=== PATIENT | female | born 1935 | race American Indian/Alaskan Native ===

== ENCOUNTER 2021-04-21 21:38 | Observation (INO) | payer MEDICARE, OTHER ==
[2021-04-21 21:53] VITALS: BMI 21.1
[2021-04-21] MEDS ORDERED: ALPRAZolam 1 MG TABLET PO PRN (23:09)
[2021-04-21] MEDS ORDERED: ALPRAZolam 1 MG TABLET PO ONE (23:25)
[2021-04-21] MEDS ORDERED: ALPRAZolam 1 MG TABLET ONE (23:30)
[2021-04-22 00:42] LABS: BASO % 1.2 % (0-2.0); EOS % 3.8 % (0-4.5); HEMATOCRIT 35.2 % (32.4-45.2); HEMOGLOBIN 12.1 GM/dL (10.7-15.3); LYMPH % 16.5 % (8-40); MCH 29.9 pg (25.7-33.7); MCHC 34.4 g/dl (32.0-36.0); MEAN CELL VOLUME 86.9 fl (80-96); MEAN PLT VOLUME 8.3 fl (7.5-11.1); MONO % 9.4 % (3.8-10.2); NEUT % 69.1 % (42.8-82.8); PLATELET COUNT 272 10^3/uL (134-434); RBC 4.05 M/mm3 (3.60-5.2); RDW 13.2 % (11.6-15.6); WHITE BLOOD COUNT 9.8 K/mm3 (4.0-10.0)
[2021-04-22 00:54] LABS: CHLORIDE 103 mmol/L (98-107); SODIUM 136 mmol/L (136-145)
[2021-04-22 00:56] LABS: CALCIUM 9.7 mg/dL (8.5-10.1)
[2021-04-22 00:57] LABS: ANION GAP 10 MMOL/L (8-16); BLOOD UREA NITROGEN 24.9 mg/dL (7-18); CO2 24 mmol/L (21-32); GLUCOSE,RANDOM 126 mg/dL (74-106); MAGNESIUM 2.3 mg/dL (1.8-2.4)
[2021-04-22 01:00] LABS: CREATININE 1.1 mg/dL (0.55-1.3); SGOT/AST 20 U/L (15-37); SGPT/ALT 26 U/L (13-61)
[2021-04-22 01:01] LABS: BILIRUBIN,TOTAL 0.5 mg/dL (0.2-1)
[2021-04-22 01:02] LABS: TOT PROT 7.4 g/dl (6.4-8.2)
[2021-04-22 01:03] LABS: ALK PHOS 73 U/L (45-117)
[2021-04-22] MEDS ORDERED: ACETAMINOPHEN 325 MG TABLET (FP) PO PRN (02:44)
[2021-04-22] MEDS ORDERED: POLYETHYLENE GLYCOL (HEALTHYLAX) 3350 17 GM PACKET PO PRN (02:44)
[2021-04-22] MEDS ORDERED: ALPRAZolam 0.25 MG TABLET PO PRN (04:26)
[2021-04-22] MEDS ORDERED: ALBUTEROL SO4 HFA INHALER IH PRN (04:26)
[2021-04-22] MEDS ORDERED: FAMOTIDINE 10 MG TABLET PO ONE (05:16)
[2021-04-22] MEDS ORDERED: FAMOTIDINE 10 MG TABLET ONE (05:27)
[2021-04-22] MEDS ORDERED: LEVOTHYROXINE NA 25 MCG TABLET (FP) ONE (05:55)
[2021-04-22] MEDS ORDERED: LEVOTHYROXINE NA 50 MCG TABLET (FP) PO SCH (07:00)
[2021-04-22 07:23] LABS: CHLORIDE 104 mmol/L (98-107); SODIUM 136 mmol/L (136-145)
[2021-04-22 07:33] LABS: CALCIUM 9.3 mg/dL (8.5-10.1)
[2021-04-22 07:34] LABS: ANION GAP 6 MMOL/L (8-16); BLOOD UREA NITROGEN 27.3 mg/dL (7-18); CO2 26 mmol/L (21-32); GLUCOSE,RANDOM 162 mg/dL (74-106)
[2021-04-22 07:37] LABS: CREATININE 1.4 mg/dL (0.55-1.3)
[2021-04-22 09:00] LABS: EOS % 6.2 % (0-4.5); HEMATOCRIT 35.3 % (32.4-45.2); HEMOGLOBIN 11.8 GM/dL (10.7-15.3); LYMPH % 26.8 % (8-40); MCH 29.4 pg (25.7-33.7); MCHC 33.3 g/dl (32.0-36.0); MEAN CELL VOLUME 88.2 fl (80-96); MEAN PLT VOLUME 8.7 fl (7.5-11.1); MONO % 12.8 % (3.8-10.2); NEUT % 53.2 % (42.8-82.8); PLATELET COUNT 286 10^3/uL (134-434); RDW 13.4 % (11.6-15.6); WHITE BLOOD COUNT 9.9 K/mm3 (4.0-10.0)
[2021-04-22] MEDS ORDERED: amLODIPine BESYLATE 5 MG TABLET (FP) ONE (09:30)
[2021-04-22] MEDS ORDERED: ALPRAZolam 0.25 MG TABLET ONE (09:31)
[2021-04-22] MEDS ORDERED: LOSARTAN POTASSIUM 50 MG TABLET ONE (09:31)
[2021-04-22] MEDS ORDERED: METOPROLOL TARTRATE 50 MG TABLET (FP) ONE (09:31)
[2021-04-22 09:58] VITALS: TEMP 98.1
[2021-04-22] MEDS ORDERED: LOSARTAN POTASSIUM 50 MG TABLET PO SCH ×2 (10:00)
[2021-04-22] MEDS ORDERED: BUDESONIDE/FORMETEROL FUMARATE 160/4.5 mcg INHALER IH SCH (10:00)
[2021-04-22] MEDS ORDERED: METOPROLOL TARTRATE 50 MG TABLET (FP) PO SCH (10:00)
[2021-04-22] MEDS ORDERED: amLODIPine BESYLATE 5 MG TABLET (FP) PO SCH (10:00)
[2021-04-22 13:19] VITALS: BP 120/68; PULSE 63
[2021-04-22] MEDS ORDERED: LACTATED RINGERS SOLUTION 1,000 ML/1,000 ML INFUS.BAG IV SCH (14:00)
== END 2021-04-22 15:31 | disposition home or self-care (01) ==
LOC: JER 21:38 → JERFT 21:38 → JERBED 23:10
PROVIDERS: ADMIT Hospitalist
PROC: 3E0F7SF Introduction of Other Gas into Respiratory Tract, Via Natural or Artificial Opening (ICD-10-PCS; principal; 2021-04-21)
DX: R07.89 Other chest pain (principal); F41.9 Anxiety disorder, unspecified; I10 Essential (primary) hypertension; E03.9 Hypothyroidism, unspecified; J44.9 Chronic obstructive pulmonary disease, unspecified; K21.9 Gastro-esophageal reflux disease without esophagitis; Z91.011 Allergy to milk products; Z91.018 Allergy to other foods
CPT/HCPCS: 36415; 71045-TC-FY; 80048; 80053; 82550; 83735; 84443; 84484; 85025; 93005; 93010; 94640; 99285-25; C9803; G0378; U0003; U0005

== ENCOUNTER 2022-10-30 18:49 | Emergency (ER) | payer OTHER ==
[2022-10-30 18:57] VITALS: TEMP 97.5; BMI 21.1
[2022-10-30] MEDS ORDERED: CEPHALEXIN MONOHYDRATE 500 MG CAPSULE (UD) PO ONE (21:20)
[2022-10-30] MEDS ORDERED: CEPHALEXIN MONOHYDRATE 500 MG CAPSULE (UD) ONE (21:29)
[2022-10-30 21:30] LABS: BASO % 0.7 % (0-2.0); EOS % 4.3 % (0-4.5); HEMATOCRIT 38.6 % (32.4-45.2); HEMOGLOBIN 12.9 GM/dL (10.7-15.3); LYMPH % 18.4 % (8-40); MCH 29.4 pg (25.7-33.7); MCHC 33.4 g/dl (32.0-36.0); MEAN CELL VOLUME 87.8 fl (80-96); MEAN PLT VOLUME 7.6 fl (7.5-11.1); NEUT % 64.6 % (42.8-82.8); PLATELET COUNT 227 10^3/uL (134-434); RDW 13.5 % (11.6-15.6); WHITE BLOOD COUNT 9.2 K/mm3 (4.0-10.0)
[2022-10-30 21:38] LABS: INR 0.96 (0.83-1.09); PROTHROMBIN TIME (PATIENT) 11.1 SEC (9.7-13.0)
[2022-10-30 22:00] LABS: ALBUMIN 3.8 g/dl (3.4-5.0); CALCIUM 9.4 mg/dL (8.5-10.1)
[2022-10-30 22:01] LABS: BLOOD UREA NITROGEN 22.6 mg/dL (7-18)
[2022-10-30 22:03] LABS: CREATININE 1.2 mg/dL (0.55-1.3)
[2022-10-30 22:05] LABS: BILIRUBIN,TOTAL 0.7 mg/dL (0.2-1); TOT PROT 7.2 g/dl (6.4-8.2)
[2022-10-30] MEDS ORDERED: SODIUM POLYSTYRENE SULFONATE 15 GM/60 ML BOTTLE PO ONE (22:30)
[2022-10-30] MEDS ORDERED: SODIUM POLYSTYRENE SULFONATE 15 GM/60 ML BOTTLE ONE (22:43)
[2022-10-30 22:49] VITALS: BP 150/75; PULSE 75; RESP 20
== END 2022-10-30 22:49 | disposition home or self-care (01) ==
LOC: JER 18:49
DX: N39.0 Urinary tract infection, site not specified (principal); R07.89 Other chest pain; R30.9 Painful micturition, unspecified; W10.8XXA Fall (on) (from) other stairs and steps, initial encounter; Y93.01 Activity, walking, marching and hiking; Y92.019 Unspecified place in single-family (private) house as the place of occurrence of the external cause
CPT/HCPCS: 36415; 70450-TC; 71046-TC-FY; 71101-TC-LT-FY; 72125-TC; 80053; 84439; 84443; 84484; 85025; 85610; 85730; 86850; 86900; 86901; 93005; 93010; 99285-25

== ENCOUNTER 2022-11-01 22:03 | Inpatient (IN) | payer OTHER ==
[2022-11-01] MEDS ORDERED: ACETAMINOPHEN 1000 MG/100 ML BAG IVPB ONE (22:25)
[2022-11-01] MEDS ORDERED: FAMOTIDINE 20 MG/50 ML IVPB 20 MG/50 ML MG IVPB ONE ×2 (22:35→23:08)
[2022-11-01] MEDS ORDERED: ONDANSETRON 4 MG/2 ML VIAL IVPUSH ONE (22:35)
[2022-11-01] MEDS ORDERED: ACETAMINOPHEN INJECTION 100 ML IVPB ONE (23:08)
[2022-11-01] MEDS ORDERED: ONDANSETRON 4 MG/2 ML VIAL ONE (23:08)
[2022-11-01 23:24] LABS: BASO % 0.6 % (0-2.0); EOS % 0.3 % (0-4.5); HEMATOCRIT 37.2 % (32.4-45.2); HEMOGLOBIN 12.4 GM/dL (10.7-15.3); LYMPH % 5.4 % (8-40); MCH 29.1 pg (25.7-33.7); MCHC 33.3 g/dl (32.0-36.0); MEAN CELL VOLUME 87.2 fl (80-96); MEAN PLT VOLUME 7.6 fl (7.5-11.1); MONO % 7.1 % (3.8-10.2); NEUT % 86.6 % (42.8-82.8); PLATELET COUNT 227 10^3/uL (134-434); RBC 4.26 M/mm3 (3.60-5.2); RDW 13.1 % (11.6-15.6); WHITE BLOOD COUNT 12.6 K/mm3 (4.0-10.0)
[2022-11-01 23:38] LABS: POTASSIUM 4.2 mmol/L (3.5-5.1)
[2022-11-01 23:43] LABS: CREATININE 0.8 mg/dL (0.55-1.3)
[2022-11-01] MEDS ORDERED: SODIUM CHLORIDE 0.9% 500 ML INFUS.BAG IV ONE (23:44)
[2022-11-02 00:09] LABS: CALCIUM 8.9 mg/dL (8.5-10.1)
[2022-11-02] MEDS ORDERED: ASPIRIN 81 MG CHEWABLE TABLETS PO ONE (00:13)
[2022-11-02] MEDS ORDERED: ASPIRIN 81 MG CHEWABLE TABLETS ONE (00:22)
[2022-11-02] MEDS ORDERED: ATORVASTATIN CA 80 MG TABLET (FP) PO ONE (00:59)
[2022-11-02] MEDS ORDERED: ALPRAZolam 0.25 MG TABLET ONE (01:24)
[2022-11-02] MEDS ORDERED: PATIENT'S OWN MEDICATION (NON-FORMULARY) (Alprazolam [Alprazolam Xr] 0.5 MG Tab.Er.24h) PO PRN (01:24)
[2022-11-02] MEDS ORDERED: ALPRAZolam 1 MG TABLET PO PRN (01:24)
[2022-11-02] MEDS ORDERED: ATORVASTATIN CA 80 MG TABLET (FP) ONE (01:25)
[2022-11-02] MEDS ORDERED: CEFTRIAXONE 1 GM in DEXTROSE 5%-WATER - 50 ML IVPB ONE (02:45)
[2022-11-02] MEDS ORDERED: SODIUM CHLORIDE 1,000 ML IV SCH (03:00)
[2022-11-02 03:08] VITALS: BMI 21.1
[2022-11-02] MEDS ORDERED: ONDANSETRON 4 MG/2 ML VIAL IVPUSH ONE (03:22)
[2022-11-02] MEDS: ALPRAZolam 0.25 MG TABLET PO PRN ×3 (03:57→20:31)
[2022-11-02] MEDS ORDERED: ALBUTEROL SO4 HFA INHALER IH PRN (06:05)
[2022-11-02] MEDS: LEVOTHYROXINE NA 25 MCG TABLET (FP) PO SCH (06:11)
[2022-11-02 07:44] LABS: BASO % 0.4 % (0-2.0); EOS % 1.9 % (0-4.5); HEMATOCRIT 31.1 % (32.4-45.2); HEMOGLOBIN 10.4 GM/dL (10.7-15.3); LYMPH % 19.3 % (8-40); MCH 29.4 pg (25.7-33.7); MCHC 33.4 g/dl (32.0-36.0); MEAN CELL VOLUME 87.9 fl (80-96); MEAN PLT VOLUME 8.7 fl (7.5-11.1); MONO % 9.2 % (3.8-10.2); NEUT % 69.2 % (42.8-82.8); PLATELET COUNT 186 10^3/uL (134-434); RBC 3.54 M/mm3 (3.60-5.2); RDW 12.9 % (11.6-15.6); WHITE BLOOD COUNT 10.7 K/mm3 (4.0-10.0)
[2022-11-02 08:03] LABS: POTASSIUM 3.7 mmol/L (3.5-5.1)
[2022-11-02 08:07] LABS: CALCIUM 8.4 mg/dL (8.5-10.1)
[2022-11-02 08:08] LABS: BLOOD UREA NITROGEN 14.5 mg/dL (7-18); MAGNESIUM 1.8 mg/dL (1.8-2.4)
[2022-11-02 08:10] LABS: CREATININE 0.6 mg/dL (0.55-1.3); PHOSPHOROUS 3.1 mg/dL (2.5-4.9)
[2022-11-02 08:12] LABS: BILIRUBIN,TOTAL 0.6 mg/dL (0.2-1); TOT PROT 5.5 g/dl (6.4-8.2)
[2022-11-02 08:59] LABS: EPI CELLS 13 /uL (0-25.1); HYALINE CASTS 0 /uL (0-3.1); PH,URINE 6.5 (5.0-8.0); URINE APPEARANCE CLEAR; URINE BACTERIA 57 /uL (0-1359); URINE BILIRUBIN NEGATIVE (NEGATIVE); URINE COLOR YELLOW; URINE GLUCOSE (UA) NEGATIVE (NEGATIVE); URINE KETONE NEGATIVE (NEGATIVE); URINE LEUK ESTERASE 1+ (NEGATIVE); URINE NITRITE NEGATIVE (NEGATIVE); URINE PROTEIN NEGATIVE (NEGATIVE); URINE RBC 23 /uL (0-23.9); URINE UROBILINOGEN 0.2 mg/dL (0.2-1.0); URINE WBC 20 /uL (0-25.8)
[2022-11-02] MEDS ORDERED: ENOXAPARIN NA (PORCINE) 40 MG/0.4 ML DISP.SYRIN SQ SCH (10:00)
[2022-11-02] MEDS: ENOXAPARIN NA (PORCINE) 60 MG/0.6 ML DISP.SYRIN SQ SCH ×2 (10:18→21:23)
[2022-11-02] MEDS: ASPIRIN 81 MG CHEWABLE TABLETS PO SCH (10:19)
[2022-11-02] MEDS: LOSARTAN POTASSIUM 50 MG TABLET PO SCH (10:19)
[2022-11-02] MEDS: amLODIPine BESYLATE 10 MG TABLET (FP) PO SCH (10:19)
[2022-11-02] MEDS: BUDESONIDE/FORMETEROL FUMARATE 160/4.5 mcg INHALER IH SCH ×2 (10:21→21:24)
[2022-11-02] MEDS ORDERED: PANTOPRAZOLE 20 MG TABLET PO ONE (20:42)
[2022-11-02] MEDS ORDERED: ATORVASTATIN CA 10 MG TABLET (FP) PO SCH (22:00)
[2022-11-03] MEDS: LEVOTHYROXINE NA 25 MCG TABLET (FP) PO SCH (06:28)
[2022-11-03 07:33] LABS: CHOLESTEROL 144 mg/dL (50-200)
[2022-11-03 07:34] LABS: LDL CHOLESTEROL (ONLY SJRH) 70 mg/dL (5-100)
[2022-11-03 07:37] LABS: HDL CHOLESTEROL 62 mg/dL (40-60)
[2022-11-03] MEDS: ENOXAPARIN NA (PORCINE) 60 MG/0.6 ML DISP.SYRIN SQ SCH (10:25)
[2022-11-03] MEDS: LOSARTAN POTASSIUM 50 MG TABLET PO SCH (10:25)
[2022-11-03] MEDS: amLODIPine BESYLATE 10 MG TABLET (FP) PO SCH (10:25)
[2022-11-03] MEDS: ASPIRIN 81 MG CHEWABLE TABLETS PO SCH (10:25)
[2022-11-03] MEDS: ALPRAZolam 0.25 MG TABLET PO PRN ×2 (10:29→18:06)
[2022-11-03] MEDS: BUDESONIDE/FORMETEROL FUMARATE 160/4.5 mcg INHALER IH SCH ×2 (10:30→21:23)
[2022-11-03] MEDS ORDERED: ATORVASTATIN CA 20 MG TABLET (FP) PO SCH (11:02)
[2022-11-03] MEDS ORDERED: POLYETHYLENE GLYCOL (HEALTHYLAX) 3350 17 GM PACKET PO SCH (11:15)
[2022-11-03] MEDS ORDERED: CEFTRIAXONE 1 GM in DEXTROSE 5%-WATER - 50 ML IVPB SCH (11:45)
[2022-11-03] MEDS: GLYCERIN 1 RECTAL SUPPOSITORY, ADULT RC ONE ×2 (15:22→15:34)
[2022-11-03] MEDS ORDERED: SODIUM CHLORIDE 1 GM TABLET PO ONE (20:09)
[2022-11-03] MEDS ORDERED: ALPRAZolam 0.25 MG TABLET PO ONE (22:37)
[2022-11-04] MEDS: LEVOTHYROXINE NA 25 MCG TABLET (FP) PO SCH (06:14)
[2022-11-04 08:03] LABS: BASO % 0.7 % (0-2.0); EOS % 6.1 % (0-4.5); HEMATOCRIT 33.8 % (32.4-45.2); HEMOGLOBIN 11.1 GM/dL (10.7-15.3); LYMPH % 24.9 % (8-40); MCH 29.4 pg (25.7-33.7); MCHC 32.8 g/dl (32.0-36.0); MEAN CELL VOLUME 89.8 fl (80-96); MEAN PLT VOLUME 8.2 fl (7.5-11.1); MONO % 15.6 % (3.8-10.2); NEUT % 52.7 % (42.8-82.8); PLATELET COUNT 207 10^3/uL (134-434); RBC 3.77 M/mm3 (3.60-5.2); RDW 13.1 % (11.6-15.6); WHITE BLOOD COUNT 6.8 K/mm3 (4.0-10.0)
[2022-11-04 08:18] LABS: POTASSIUM 4.5 mmol/L (3.5-5.1)
[2022-11-04 08:20] LABS: BLOOD UREA NITROGEN 16.5 mg/dL (7-18); CALCIUM 9.1 mg/dL (8.5-10.1)
[2022-11-04 08:21] LABS: ALBUMIN 3.1 g/dl (3.4-5.0); MAGNESIUM 2.1 mg/dL (1.8-2.4)
[2022-11-04 08:23] LABS: CREATININE 0.8 mg/dL (0.55-1.3); PHOSPHOROUS 3.5 mg/dL (2.5-4.9)
[2022-11-04 08:25] LABS: BILIRUBIN,TOTAL 0.3 mg/dL (0.2-1)
[2022-11-04] MEDS: LOSARTAN POTASSIUM 50 MG TABLET PO SCH (09:07)
[2022-11-04] MEDS: amLODIPine BESYLATE 10 MG TABLET (FP) PO SCH (09:07)
[2022-11-04] MEDS: BUDESONIDE/FORMETEROL FUMARATE 160/4.5 mcg INHALER IH SCH (09:08)
[2022-11-04] MEDS: CEFTRIAXONE 1 GM in DEXTROSE 5%-WATER - 50 ML IVPB ONE ×3 (09:08→09:33)
[2022-11-04] MEDS: ENOXAPARIN NA (PORCINE) 40 MG/0.4 ML DISP.SYRIN SQ SCH ×2 (09:09→09:19)
[2022-11-04] MEDS: ALPRAZolam 0.25 MG TABLET PO PRN (09:11)
[2022-11-04 09:45] VITALS: BP 134/58; PULSE 97; RESP 20; TEMP 98.6
[2022-11-04] MEDS ORDERED: ASPIRIN COATED 81 MG TABLET.EC PO SCH (10:00)
== END 2022-11-04 13:15 | disposition home or self-care (01) | DRG 281 ==
LOC: JER 22:03 → JERBED 11-02 00:17 → J4S 11-02 02:40
PROVIDERS: ADMIT Internal Medicine; ATTEND Internal Medicine
DX: I21.4 Non-ST elevation (NSTEMI) myocardial infarction (principal); E87.1 Hypo-osmolality and hyponatremia; N39.0 Urinary tract infection, site not specified; I10 Essential (primary) hypertension; E03.9 Hypothyroidism, unspecified; J44.9 Chronic obstructive pulmonary disease, unspecified; K21.9 Gastro-esophageal reflux disease without esophagitis; I44.0 Atrioventricular block, first degree; F41.9 Anxiety disorder, unspecified
CPT/HCPCS: 36415; 80048; 80053; 80061; 81003; 82570; 83690; 83735; 83935; 84100; 84300; 84443; 84484; 85025; 87086; 93005; 93010; 93306-TC; 94761; 97116-GP; 97161-GP; 99285-25

== ENCOUNTER 2023-08-26 17:09 | Emergency (ER) | payer OTHER ==
[2023-08-26 17:20] VITALS: RESP 17; TEMP 98.2; BMI 19.0
[2023-08-26 18:39] LABS: BASO % 0.9 % (0-2.0); EOS % 2.8 % (0-4.5); HEMATOCRIT 34.7 % (32.4-45.2); HEMOGLOBIN 11.7 GM/dL (10.7-15.3); LYMPH % 13.2 % (8-40); MCH 30.1 pg (25.7-33.7); MCHC 33.7 g/dl (32.0-36.0); MEAN CELL VOLUME 89.3 fl (80-96); MEAN PLT VOLUME 7.9 fl (7.5-11.1); MONO % 11.9 % (3.8-10.2); NEUT % 71.2 % (42.8-82.8); PLATELET COUNT 224 10^3/uL (134-434); RBC 3.89 M/mm3 (3.60-5.2); RDW 13.7 % (11.6-15.6); WHITE BLOOD COUNT 7.3 K/mm3 (4.0-10.0)
[2023-08-26 19:13] LABS: POTASSIUM 4.5 mmol/L (3.5-5.1)
[2023-08-26 19:15] LABS: ALBUMIN 3.5 g/dl (3.4-5.0); BLOOD UREA NITROGEN 32.4 mg/dL (7-18)
[2023-08-26 19:16] LABS: MAGNESIUM 2.4 mg/dL (1.8-2.4)
[2023-08-26 19:20] LABS: BILIRUBIN,TOTAL 0.3 mg/dL (0.2-1); TOT PROT 6.6 g/dl (6.4-8.2)
[2023-08-26] MEDS: LOSARTAN POTASSIUM 50 MG TABLET PO ONE (20:29)
[2023-08-26 20:53] VITALS: BP 138/73; PULSE 88
[2023-08-26] MEDS ORDERED: amLODIPine BESYLATE 10 MG TABLET (FP) ONE (20:54)
[2023-08-26] MEDS: amLODIPine BESYLATE 10 MG TABLET (FP) PO ONE (20:59)
== END 2023-08-26 21:23 | disposition home or self-care (01) ==
LOC: JER 17:09
DX: R26.9 Unspecified abnormalities of gait and mobility (principal); Z20.822 Contact with and (suspected) exposure to COVID-19
CPT/HCPCS: 0241U-QW; 36415; 70450-TC; 80053; 83735; 84439; 84443; 84484; 85025; 93005; 93010; 99285-25

== ENCOUNTER 2023-10-27 14:43 | Observation (INO) | payer OTHER ==
[2023-10-27] MEDS ORDERED: FAMOTIDINE 20 MG/50 ML IVPB 20 MG/50 ML MG IVPB ONE (16:32)
[2023-10-27 16:34] LABS: EOS % 2.9 % (0-4.5); HEMATOCRIT 35.7 % (32.4-45.2); HEMOGLOBIN 12.2 GM/dL (10.7-15.3); LYMPH % 16.8 % (8-40); MCH 30.6 pg (25.7-33.7); MCHC 34.2 g/dl (32.0-36.0); MEAN CELL VOLUME 89.6 fl (80-96); MEAN PLT VOLUME 7.5 fl (7.5-11.1); MONO % 10.1 % (3.8-10.2); NEUT % 69.2 % (42.8-82.8); PLATELET COUNT 241 10^3/uL (134-434); RBC 3.98 M/mm3 (3.60-5.2); WHITE BLOOD COUNT 7.4 K/mm3 (4.0-10.0)
[2023-10-27 16:36] LABS: EPI CELLS 5 /uL (0-25.1); HYALINE CASTS 1 /uL (0-3.1); URINE APPEARANCE CLEAR; URINE BACTERIA 7509 /uL (0-1359); URINE BILIRUBIN NEGATIVE (NEGATIVE); URINE COLOR YELLOW; URINE GLUCOSE (UA) NEGATIVE (NEGATIVE); URINE KETONE NEGATIVE (NEGATIVE); URINE LEUK ESTERASE 3+ (NEGATIVE); URINE NITRITE POSITIVE (NEGATIVE); URINE PROTEIN NEGATIVE (NEGATIVE); URINE RBC 6 /uL (0-23.9); URINE UROBILINOGEN 0.2 mg/dL (0.2-1.0); URINE WBC 243 /uL (0-25.8)
[2023-10-27 16:51] LABS: POTASSIUM 4.2 mmol/L (3.5-5.1)
[2023-10-27 16:53] LABS: ALBUMIN 3.7 g/dl (3.4-5.0); BLOOD UREA NITROGEN 22.7 mg/dL (7-18); CALCIUM 9.2 mg/dL (8.5-10.1)
[2023-10-27] MEDS: FAMOTIDINE 20 MG/50 ML IVPB 20 MG/50 ML MG IVPB ONE (16:54)
[2023-10-27] MEDS: LORazepam 2 MG/ML SDV VIAL IM ONE (16:54)
[2023-10-27] MEDS: LORazepam 2 MG/ML SDV VIAL IVPUSH ONE (16:54)
[2023-10-27 16:56] LABS: CREATININE 0.9 mg/dL (0.55-1.3)
[2023-10-27 16:57] LABS: PHOSPHOROUS 2.6 mg/dL (2.5-4.9)
[2023-10-27 16:58] LABS: BILIRUBIN,TOTAL 0.5 mg/dL (0.2-1); TOT PROT 7.3 g/dl (6.4-8.2)
[2023-10-27] MEDS ORDERED: CEFTRIAXONE 1 GM/50 ML BAG ONE (18:28)
[2023-10-27 18:31] LABS: INR 0.94 (0.83-1.09); PROTHROMBIN TIME (PATIENT) 10.8 SEC (9.7-13.0)
[2023-10-27 18:35] LABS: ACTIVATED PTT 28.4 SECONDS (25.2-36.5)
[2023-10-27] MEDS ORDERED: ALBUTEROL SO4 HFA INHALER IH PRN (22:06)
[2023-10-27] MEDS ORDERED: POLYETHYLENE GLYCOL (HEALTHYLAX) 3350 17 GM PACKET ONE (22:16)
[2023-10-27] MEDS: POLYETHYLENE GLYCOL (HEALTHYLAX) 3350 17 GM PACKET PO SCH (22:45)
[2023-10-28] MEDS: LEVOTHYROXINE NA 25 MCG TABLET (FP) PO SCH (06:11)
[2023-10-28 07:59] LABS: HEMATOCRIT 31.9 % (32.4-45.2); MCH 30.8 pg (25.7-33.7); MCHC 34.4 g/dl (32.0-36.0); MEAN CELL VOLUME 89.5 fl (80-96); MEAN PLT VOLUME 7.8 fl (7.5-11.1); PLATELET COUNT 223 10^3/uL (134-434); RBC 3.56 M/mm3 (3.60-5.2); RDW 13.2 % (11.6-15.6); WHITE BLOOD COUNT 8.3 K/mm3 (4.0-10.0)
[2023-10-28 08:13] LABS: POTASSIUM 4.2 mmol/L (3.5-5.1)
[2023-10-28 08:17] LABS: CALCIUM 8.8 mg/dL (8.5-10.1)
[2023-10-28 08:18] LABS: ALBUMIN 3.2 g/dl (3.4-5.0)
[2023-10-28 08:21] LABS: CREATININE 0.9 mg/dL (0.55-1.3)
[2023-10-28 08:23] LABS: BILIRUBIN,TOTAL 0.6 mg/dL (0.2-1); TOT PROT 6.1 g/dl (6.4-8.2)
[2023-10-28] MEDS: amLODIPine BESYLATE 10 MG TABLET (FP) PO SCH (10:17)
[2023-10-28] MEDS: ASPIRIN COATED 81 MG TABLET.EC PO SCH (10:17)
[2023-10-28] MEDS: LOSARTAN POTASSIUM 50 MG TABLET PO SCH (10:18)
[2023-10-28] MEDS: ENOXAPARIN NA (PORCINE) 40 MG/0.4 ML DISP.SYRIN SQ SCH (10:18)
[2023-10-28] MEDS: CEFTRIAXONE 1 GM in DEXTROSE 5%-WATER - 50 ML IVPB SCH (10:18)
[2023-10-28] MEDS: BUDESONIDE/FORMETEROL FUMARATE 160/4.5 mcg INHALER IH SCH (10:19)
[2023-10-28] MEDS ORDERED: PANTOPRAZOLE 40 MG TABLET PO SCH (10:45)
[2023-10-28] MEDS: PANTOPRAZOLE 40 MG TABLET PO SCH (12:20)
[2023-10-28] MEDS: PANTOPRAZOLE 20 MG TABLET PO SCH (15:31)
[2023-10-28] MEDS: ALPRAZolam 0.25 MG TABLET PO SCH (16:08)
[2023-10-28] MEDS: ATORVASTATIN CA 20 MG TABLET (FP) PO SCH (21:35)
[2023-10-29] MEDS: POLYETHYLENE GLYCOL (HEALTHYLAX) 3350 17 GM PACKET PO SCH ×2 (10:15→21:59)
[2023-10-29 13:05] VITALS: BMI 16.6
[2023-10-29] MEDS: LACTULOSE 20 GM/30 ML UDC (FOR ORAL USE ONLY) PO ONE (14:31)
[2023-10-29] MEDS: MULTIVIT-MINERALS ORAL LIQUID PO SCH (14:31)
[2023-10-29 23:37] VITALS: RESP 18
[2023-10-30 06:40] LABS: BASO % 1.3 % (0-2.0); EOS % 9.7 % (0-4.5); HEMATOCRIT 32.4 % (32.4-45.2); HEMOGLOBIN 10.9 GM/dL (10.7-15.3); MCH 30.1 pg (25.7-33.7); MCHC 33.5 g/dl (32.0-36.0); MEAN CELL VOLUME 89.7 fl (80-96); MEAN PLT VOLUME 8.4 fl (7.5-11.1); MONO % 12.7 % (3.8-10.2); NEUT % 45.3 % (42.8-82.8); PLATELET COUNT 220 10^3/uL (134-434); RBC 3.61 M/mm3 (3.60-5.2); RDW 13.1 % (11.6-15.6); WHITE BLOOD COUNT 6.9 K/mm3 (4.0-10.0)
[2023-10-30 06:54] LABS: POTASSIUM 4.5 mmol/L (3.5-5.1)
[2023-10-30 06:58] LABS: BLOOD UREA NITROGEN 31.8 mg/dL (7-18); CALCIUM 8.7 mg/dL (8.5-10.1); MAGNESIUM 2.2 mg/dL (1.8-2.4)
[2023-10-30 07:01] LABS: PHOSPHOROUS 4.3 mg/dL (2.5-4.9)
[2023-10-30 07:02] LABS: CREATININE 0.8 mg/dL (0.55-1.3)
[2023-10-30 07:03] LABS: BILIRUBIN,TOTAL 0.3 mg/dL (0.2-1); TOT PROT 5.8 g/dl (6.4-8.2)
[2023-10-30] MEDS: FLUTICASONE PROP 0.05% 16 GM NASAL SPRAY NS SCH (09:14)
[2023-10-30] MEDS: amLODIPine BESYLATE 5 MG TABLET (FP) PO SCH (09:15)
[2023-10-30] MEDS: ISOSORBIDE MONONITRATE 30 MG TAB.SR.24H (FP) PO SCH (09:17)
[2023-10-30 09:38] VITALS: TEMP 97.6
[2023-10-30] MEDS: LOSARTAN POTASSIUM 50 MG TABLET PO ONE (10:24)
[2023-10-30 11:45] VITALS: BP 106/62; PULSE 86
[2023-10-31] MEDS ORDERED: LOSARTAN POTASSIUM 50 MG TABLET PO SCH (10:00)
== END 2023-10-30 11:49 | disposition home health service (06) ==
LOC: JER 14:43 → JERBED 19:40 → J4S 10-28 00:07
PROVIDERS: ADMIT Internal Medicine; ATTEND Internal Medicine
PROC: 3E03329 Introduction of Other Anti-infective into Peripheral Vein, Percutaneous Approach (ICD-10-PCS; principal; 2023-10-27)
PROC: 3E033GC Introduction of Other Therapeutic Substance into Peripheral Vein, Percutaneous Approach (ICD-10-PCS; 2023-10-27)
DX: N39.0 Urinary tract infection, site not specified (principal); R10.13 Epigastric pain; I10 Essential (primary) hypertension; J45.909 Unspecified asthma, uncomplicated; R07.89 Other chest pain; E78.5 Hyperlipidemia, unspecified; K21.9 Gastro-esophageal reflux disease without esophagitis; E03.9 Hypothyroidism, unspecified; F41.9 Anxiety disorder, unspecified; E87.1 Hypo-osmolality and hyponatremia; Z87.440 Personal history of urinary (tract) infections
CPT/HCPCS: 36415; 71045-TC-FY; 71250-TC; 74177-TC; 80053; 81003; 82272; 83605; 83690; 83735; 84100; 84484; 85025; 85027; 85610; 85730; 86850; 86900; 86901; 87086; 93005; 93010; 93306-TC; 96365; 96367; 96372; 99285-25; G0378; Q9967

== ENCOUNTER 2023-11-28 21:44 | Observation (INO) | payer OTHER ==
[2023-11-28] MEDS ORDERED: ALBUTEROL SO4 2.5/IPRATROPIUM 0.5 INH SOL 3 ML VIAL.NEB. NEB ONE (21:58)
[2023-11-28] MEDS ORDERED: DEXAMETHASONE 4 MG TABLET (FP) ONE (21:58)
[2023-11-28] MEDS: DEXAMETHASONE 4 MG TABLET (FP) PO ONE (22:07)
[2023-11-28] MEDS: ALBUTEROL SO4 2.5/IPRATROPIUM 0.5 INH SOL 3 ML VIAL.NEB. NEB ONE (22:07)
[2023-11-28] MEDS ORDERED: MAGNESIUM SULFATE IN WATER 2 GM/50 ML IVPB IVPB ONE (22:15)
[2023-11-28 22:21] VITALS: BMI 17.2
[2023-11-28] MEDS: MAGNESIUM SULF 50% (8.12 MEQ/2 ML-1 GM VIAL) IVPB ONE (22:36)
[2023-11-28 22:44] LABS: BASO % 1.1 % (0-2.0); EOS % 2.7 % (0-4.5); HEMATOCRIT 38.2 % (32.4-45.2); HEMOGLOBIN 13.1 GM/dL (10.7-15.3); LYMPH % 21.8 % (8-40); MCH 30.2 pg (25.7-33.7); MCHC 34.3 g/dl (32.0-36.0); MEAN CELL VOLUME 88.2 fl (80-96); MEAN PLT VOLUME 8.1 fl (7.5-11.1); MONO % 10.8 % (3.8-10.2); NEUT % 63.6 % (42.8-82.8); PLATELET COUNT 236 10^3/uL (134-434); RBC 4.32 M/mm3 (3.60-5.2); RDW 13.5 % (11.6-15.6); WHITE BLOOD COUNT 7.9 K/mm3 (4.0-10.0)
[2023-11-28 22:46] LABS: VENOUS BASE EXCESS -1.7 mmol/L (-2-2); VENOUS O2 SATURATION 83.1 % (70-80); VENOUS PCO2 18.4 mmHg (38-52); VENOUS PH 7.59 (7.310-7.410)
[2023-11-28] MEDS ORDERED: APIXABAN 2.5 MG TABLET ONE (22:46)
[2023-11-28 22:49] LABS: INR 0.99 (0.83-1.09); PROTHROMBIN TIME (PATIENT) 11.2 SEC (9.7-13.0)
[2023-11-28 22:52] LABS: ACTIVATED PTT 30.1 SECONDS (25.2-36.5)
[2023-11-28] MEDS: APIXABAN 2.5 MG TABLET PO SCH (22:52)
[2023-11-28 23:03] LABS: POTASSIUM 3.9 mmol/L (3.5-5.1)
[2023-11-28 23:05] LABS: BLOOD UREA NITROGEN 17.2 mg/dL (7-18); CALCIUM 9.5 mg/dL (8.5-10.1)
[2023-11-28 23:06] LABS: ALBUMIN 3.9 g/dl (3.4-5.0)
[2023-11-28 23:08] LABS: CREATININE 0.9 mg/dL (0.55-1.3)
[2023-11-28 23:10] LABS: BILIRUBIN,TOTAL 0.8 mg/dL (0.2-1); TOT PROT 7.4 g/dl (6.4-8.2)
[2023-11-28 23:13] LABS: N-TERMINAL BNP 254.3 pg/ml (5-450)
[2023-11-29] MEDS ORDERED: ALPRAZolam 0.25 MG TABLET ONE (00:19)
[2023-11-29] MEDS: ALPRAZolam 0.25 MG TABLET PO ONE (00:36)
[2023-11-29] MEDS ORDERED: ALBUTEROL SO4 HFA INHALER IH PRN (06:26)
[2023-11-29 07:43] LABS: BASO % 0.6 % (0-2.0); EOS % 0.5 % (0-4.5); HEMATOCRIT 32.9 % (32.4-45.2); HEMOGLOBIN 11.3 GM/dL (10.7-15.3); LYMPH % 16.8 % (8-40); MCH 30.3 pg (25.7-33.7); MCHC 34.2 g/dl (32.0-36.0); MEAN CELL VOLUME 88.6 fl (80-96); MONO % 2.5 % (3.8-10.2); NEUT % 79.6 % (42.8-82.8); PLATELET COUNT 209 10^3/uL (134-434); RBC 3.71 M/mm3 (3.60-5.2); WHITE BLOOD COUNT 4.8 K/mm3 (4.0-10.0)
[2023-11-29 07:54] LABS: POTASSIUM 4.3 mmol/L (3.5-5.1)
[2023-11-29 08:00] LABS: CALCIUM 8.6 mg/dL (8.5-10.1)
[2023-11-29 08:01] LABS: BLOOD UREA NITROGEN 19.9 mg/dL (7-18)
[2023-11-29 08:02] LABS: MAGNESIUM 2.2 mg/dL (1.8-2.4)
[2023-11-29 08:04] LABS: CREATININE 1.1 mg/dL (0.55-1.3)
[2023-11-29 08:05] LABS: PHOSPHOROUS 3.1 mg/dL (2.5-4.9)
[2023-11-29 08:06] LABS: BILIRUBIN,TOTAL 0.6 mg/dL (0.2-1); TOT PROT 6.1 g/dl (6.4-8.2)
[2023-11-29 08:33] LABS: ALBUMIN 3.1 g/dl (3.4-5.0)
[2023-11-29] MEDS: LOSARTAN POTASSIUM 50 MG TABLET PO SCH (09:11)
[2023-11-29] MEDS: LEVOTHYROXINE NA 25 MCG TABLET (FP) PO SCH (09:11)
[2023-11-29] MEDS: BUDESONIDE/FORMETEROL FUMARATE 160/4.5 mcg INHALER IH SCH (09:12)
[2023-11-29] MEDS: ASPIRIN COATED 81 MG TABLET.EC PO SCH (09:12)
[2023-11-29] MEDS: amLODIPine BESYLATE 5 MG TABLET (FP) PO SCH (09:12)
[2023-11-29] MEDS: PANTOPRAZOLE 20 MG TABLET PO SCH (09:12)
[2023-11-29] MEDS: ALPRAZolam 1 MG TABLET PO PRN (10:29)
[2023-11-29 13:31] VITALS: BP 105/57; PULSE 72; RESP 18; TEMP 97.9
== END 2023-11-29 14:21 | disposition home health service (06) ==
LOC: JER 21:44 → UNDOADMOB 23:30 → INTOOBSV 23:30 → JERBED 23:30
PROVIDERS: ADMIT Internal Medicine; ATTEND Internal Medicine
PROC: 3E0F7GC Introduction of Other Therapeutic Substance into Respiratory Tract, Via Natural or Artificial Opening (ICD-10-PCS; principal; 2023-11-29)
PROC: 3E033GC Introduction of Other Therapeutic Substance into Peripheral Vein, Percutaneous Approach (ICD-10-PCS; 2023-11-29)
DX: R06.02 Shortness of breath (principal); R07.89 Other chest pain; F41.9 Anxiety disorder, unspecified; I10 Essential (primary) hypertension; J45.909 Unspecified asthma, uncomplicated; E03.9 Hypothyroidism, unspecified; K21.9 Gastro-esophageal reflux disease without esophagitis; R73.03 Prediabetes; I77.819 Aortic ectasia, unspecified site; E78.5 Hyperlipidemia, unspecified; Z87.440 Personal history of urinary (tract) infections
CPT/HCPCS: 36415; 71045-TC-FY; 71275-TC; 80053; 82803; 83735; 83880; 84100; 84439; 84443; 84484; 85025; 85379; 85610; 85730; 93005; 93010; 94640; 96374; 99285-25; G0378

== ENCOUNTER 2023-12-03 01:53 | Observation (INO) | payer OTHER ==
[2023-12-03 02:08] VITALS: BMI 16.4
[2023-12-03] MEDS ORDERED: ALBUTEROL SO4 2.5/IPRATROPIUM 0.5 INH SOL 3 ML VIAL.NEB. NEB ONE (02:33)
[2023-12-03] MEDS: ALBUTEROL SO4 2.5/IPRATROPIUM 0.5 INH SOL 3 ML VIAL.NEB. NEB ONE (02:42)
[2023-12-03] MEDS ORDERED: ALPRAZolam 1 MG TABLET PO PRN (05:20)
[2023-12-03] MEDS ORDERED: ALPRAZolam 1 MG TABLET ONE (05:24)
[2023-12-03] MEDS: ALPRAZolam 1 MG TABLET PO ONE (05:29)
[2023-12-03] MEDS ORDERED: PANTOPRAZOLE 20 MG TABLET PO ONE (10:10)
[2023-12-03] MEDS: PANTOPRAZOLE 20 MG TABLET PO ONE (10:15)
[2023-12-03] MEDS ORDERED: ALPRAZolam 0.25 MG TABLET ONE (10:17)
[2023-12-03] MEDS: ALPRAZolam 0.25 MG TABLET PO ONE (10:22)
[2023-12-03] MEDS ORDERED: ENOXAPARIN NA (PORCINE) 40 MG/0.4 ML DISP.SYRIN SQ SCH (10:30)
[2023-12-03 10:49] LABS: HEMATOCRIT 35.7 % (32.4-45.2); HEMOGLOBIN 11.7 GM/dL (10.7-15.3); LYMPH % 27.6 % (8-40); MCH 29.1 pg (25.7-33.7); MCHC 32.8 g/dl (32.0-36.0); MEAN CELL VOLUME 88.8 fl (80-96); MEAN PLT VOLUME 7.7 fl (7.5-11.1); MONO % 10.2 % (3.8-10.2); NEUT % 54.2 % (42.8-82.8); PLATELET COUNT 225 10^3/uL (134-434); RBC 4.02 M/mm3 (3.60-5.2); RDW 13.2 % (11.6-15.6); WHITE BLOOD COUNT 7.6 K/mm3 (4.0-10.0)
[2023-12-03 11:07] LABS: POTASSIUM 3.8 mmol/L (3.5-5.1)
[2023-12-03 11:10] LABS: ALBUMIN 3.4 g/dl (3.4-5.0); BLOOD UREA NITROGEN 17.9 mg/dL (7-18); CALCIUM 9.1 mg/dL (8.5-10.1)
[2023-12-03 11:15] LABS: BILIRUBIN,TOTAL 0.6 mg/dL (0.2-1); TOT PROT 6.4 g/dl (6.4-8.2)
[2023-12-03] MEDS ORDERED: amLODIPine BESYLATE 5 MG TABLET (FP) ONE (11:32)
[2023-12-03] MEDS ORDERED: ASPIRIN COATED 81 MG TABLET.EC ONE (11:33)
[2023-12-03] MEDS ORDERED: LOSARTAN POTASSIUM 50 MG TABLET ONE (11:33)
[2023-12-03] MEDS ORDERED: LEVOTHYROXINE NA 25 MCG TABLET (FP) ONE (11:33)
[2023-12-03] MEDS ORDERED: ENOXAPARIN NA (PORCINE) 30 MG/0.3 ML DISP.SYRIN SQ ONE (11:34)
[2023-12-03] MEDS: ENOXAPARIN NA (PORCINE) 30 MG/0.3 ML DISP.SYRIN SQ SCH (11:44)
[2023-12-03] MEDS: amLODIPine BESYLATE 5 MG TABLET (FP) PO ONE (11:44)
[2023-12-03] MEDS: ASPIRIN COATED 81 MG TABLET.EC PO SCH (11:44)
[2023-12-03] MEDS: LEVOTHYROXINE NA 25 MCG TABLET (FP) PO ONE (11:44)
[2023-12-03] MEDS: LOSARTAN POTASSIUM 50 MG TABLET PO ONE (11:44)
[2023-12-03] MEDS: BUDESONIDE/FORMETEROL FUMARATE 160/4.5 mcg INHALER IH SCH (12:12)
[2023-12-03] MEDS: MIRTAZAPINE 15 MG TABLET (FP) PO SCH (22:25)
[2023-12-04] MEDS: ALPRAZolam 0.25 MG TABLET PO PRN (08:27)
[2023-12-04 08:48] LABS: BASO % 1.2 % (0-2.0); EOS % 11.7 % (0-4.5); HEMATOCRIT 34.8 % (32.4-45.2); HEMOGLOBIN 11.7 GM/dL (10.7-15.3); LYMPH % 34.7 % (8-40); MCH 30.3 pg (25.7-33.7); MCHC 33.5 g/dl (32.0-36.0); MEAN CELL VOLUME 90.4 fl (80-96); MONO % 11.8 % (3.8-10.2); NEUT % 40.6 % (42.8-82.8); PLATELET COUNT 224 10^3/uL (134-434); RBC 3.85 M/mm3 (3.60-5.2); WHITE BLOOD COUNT 5.9 K/mm3 (4.0-10.0)
[2023-12-04 09:14] LABS: POTASSIUM 4.6 mmol/L (3.5-5.1)
[2023-12-04 09:18] LABS: ALBUMIN 3.2 g/dl (3.4-5.0); BLOOD UREA NITROGEN 29.8 mg/dL (7-18); MAGNESIUM 2.3 mg/dL (1.8-2.4)
[2023-12-04 09:19] LABS: CALCIUM 9.3 mg/dL (8.5-10.1)
[2023-12-04 09:22] LABS: PHOSPHOROUS 3.8 mg/dL (2.5-4.9)
[2023-12-04 09:23] LABS: BILIRUBIN,TOTAL 0.6 mg/dL (0.2-1); TOT PROT 6.1 g/dl (6.4-8.2)
[2023-12-04 10:04] VITALS: RESP 18
[2023-12-04] MEDS: LOSARTAN POTASSIUM 50 MG TABLET PO SCH (10:43)
[2023-12-04] MEDS: amLODIPine BESYLATE 5 MG TABLET (FP) PO SCH (10:43)
[2023-12-04] MEDS: PANTOPRAZOLE 20 MG TABLET PO SCH (10:48)
[2023-12-04] MEDS: LEVOTHYROXINE NA 25 MCG TABLET (FP) PO SCH (11:24)
[2023-12-04] MEDS: LORATADINE 10 MG TABLET PO SCH (15:13)
[2023-12-04] MEDS: diphenhydrAMINE HCL 25 MG CAPSULE (FP) PO SCH (15:26)
[2023-12-05 15:28] VITALS: BP 135/83; PULSE 72; TEMP 97.3
[2023-12-05] MEDS ORDERED: MONTELUKAST NA 10 MG TABLET PO SCH (22:00)
== END 2023-12-05 16:09 | disposition home or self-care (01) ==
LOC: JER 01:53 → JERBED 06:24 → J5S 14:11
PROVIDERS: ADMIT Internal Medicine
PROC: 3E0F7GC Introduction of Other Therapeutic Substance into Respiratory Tract, Via Natural or Artificial Opening (ICD-10-PCS; principal; 2023-12-03)
PROC: 3E023GC Introduction of Other Therapeutic Substance into Muscle, Percutaneous Approach (ICD-10-PCS; 2023-12-03)
DX: R07.89 Other chest pain (principal); F41.9 Anxiety disorder, unspecified; E03.9 Hypothyroidism, unspecified; R06.02 Shortness of breath; J45.909 Unspecified asthma, uncomplicated; K21.9 Gastro-esophageal reflux disease without esophagitis; I10 Essential (primary) hypertension; E78.5 Hyperlipidemia, unspecified; R91.1 Solitary pulmonary nodule; Z87.440 Personal history of urinary (tract) infections; F10.21 Alcohol dependence, in remission
CPT/HCPCS: 0241U-QW; 36415; 71045-TC-FY; 80053; 82962; 83735; 84100; 84484; 85025; 93005; 93010; 94640; 96372; 99285-25; G0378

== ENCOUNTER 2024-04-04 07:50 | Inpatient (IN) | payer OTHER ==
[2024-04-04] MEDS ORDERED: ALPRAZolam 0.25 MG TABLET ONE (08:09)
[2024-04-04] MEDS: ALPRAZolam 0.25 MG TABLET PO ONE (08:12)
[2024-04-04] MEDS ORDERED: ALPRAZolam 0.25 MG TABLET PO PRN (08:14)
[2024-04-04 08:50] LABS: BASO % 0.7 % (0-2.0); EOS % 2.1 % (0-4.5); HEMATOCRIT 34.9 % (32.4-45.2); HEMOGLOBIN 11.5 GM/dL (10.7-15.3); MCH 29.6 pg (25.7-33.7); MEAN CELL VOLUME 89.5 fl (80-96); MEAN PLT VOLUME 7.7 fl (7.5-11.1); MONO % 6.9 % (3.8-10.2); NEUT % 83.3 % (42.8-82.8); PLATELET COUNT 288 10^3/uL (134-434); RDW 13.3 % (11.6-15.6); WHITE BLOOD COUNT 12.5 K/mm3 (4.0-10.0)
[2024-04-04 09:03] LABS: POTASSIUM 4.2 mmol/L (3.5-5.1)
[2024-04-04 09:05] LABS: CALCIUM 8.8 mg/dL (8.5-10.1)
[2024-04-04 09:06] LABS: ALBUMIN 3.6 g/dl (3.4-5.0); BLOOD UREA NITROGEN 21.2 mg/dL (7-18)
[2024-04-04 09:10] LABS: BILIRUBIN,TOTAL 0.8 mg/dL (0.2-1); CREATININE 0.8 mg/dL (0.55-1.3)
[2024-04-04 09:11] LABS: URINE APPEARANCE CLEAR; URINE BILIRUBIN NEGATIVE (NEGATIVE); URINE COLOR AMBER; URINE GLUCOSE (UA) NEGATIVE (NEGATIVE); URINE KETONE NEGATIVE (NEGATIVE)
[2024-04-04 09:12] LABS: PH,URINE 5.5 (5.0-8.0); URINE PROTEIN 1+ (NEGATIVE); URINE UROBILINOGEN 0.2 mg/dL (0.2-1.0)
[2024-04-04 09:13] LABS: URINE LEUK ESTERASE NEGATIVE (NEGATIVE); URINE NITRITE POSITIVE (NEGATIVE)
[2024-04-04] MEDS ORDERED: CEFTRIAXONE 1 GM in DEXTROSE 5%-WATER - 100 ML IVPB ONE (09:25)
[2024-04-04] MEDS: PIPERACILLIN/TAZOB 3.375 GM 3.375 GM in DEXTROSE 5%-WATER - 50 ML IVPB ONE (09:32)
[2024-04-04] MEDS ORDERED: ACETAMINOPHEN INJECTION 100 ML ONE (09:34)
[2024-04-04] MEDS ORDERED: PIPERACILLIN/TAZOB 4.5 GM 4.5 GM/100 ML BAG IVPB ONE (09:34)
[2024-04-04] MEDS: ACETAMINOPHEN 1000 MG/100 ML BAG IVPB ONE ×2 (09:38→09:40)
[2024-04-04] MEDS: PIPERACILLIN/TAZOB 4.5 GM 4.5 GM in DEXTROSE 5%-WATER 100 ML IVPB ONE (10:44)
[2024-04-04] MEDS: LACTATED RINGERS SOLUTION 1,000 ML/1,000 ML INFUS.BAG IV SCH (12:36)
[2024-04-04] MEDS ORDERED: QUEtiapine FUMARATE 25 MG TABLET ONE (13:39)
[2024-04-04] MEDS: QUEtiapine FUMARATE 50 MG TABLET PO ONE (13:45)
[2024-04-04] MEDS ORDERED: ONDANSETRON 4 MG/2 ML VIAL IVPUSH PRN (14:08)
[2024-04-04] MEDS ORDERED: HALOPERIDOL LACTATE 5 MG/ML IM PRN (14:09)
[2024-04-04] MEDS ORDERED: FAMOTIDINE 20 MG TABLET ONE (14:10)
[2024-04-04] MEDS ORDERED: MAG HYDROX/AL HYDROX/SIMETH 30 ML UNIT-DOSE CUP ONE (14:10)
[2024-04-04] MEDS ORDERED: amLODIPine BESYLATE 5 MG TABLET (FP) ONE (14:10)
[2024-04-04] MEDS: amLODIPine BESYLATE 5 MG TABLET (FP) PO SCH (14:11)
[2024-04-04] MEDS: MAG HYDROX/AL HYDROX/SIMETH 30 ML UNIT-DOSE CUP PO ONE (14:11)
[2024-04-04] MEDS: FAMOTIDINE 20 MG TABLET PO ONE (14:11)
[2024-04-04 16:39] VITALS: BMI 19.5
[2024-04-04] MEDS: SODIUM CHLORIDE 1,000 ML IV SCH (19:47)
[2024-04-04] MEDS: SODIUM CHLORIDE 500 ML IV SCH (19:47)
[2024-04-04 20:32] LABS: POTASSIUM 3.7 mmol/L (3.5-5.1)
[2024-04-04 20:34] LABS: CALCIUM 8.7 mg/dL (8.5-10.1)
[2024-04-04 20:39] LABS: CREATININE 0.8 mg/dL (0.55-1.3); TOT PROT 5.8 g/dl (6.4-8.2)
[2024-04-04] MEDS ORDERED: QUEtiapine FUMARATE 50 MG TABLET PO SCH (22:00)
[2024-04-05 03:01] LABS: BLOOD UREA NITROGEN 28.1 mg/dL (7-18); CALCIUM 8.6 mg/dL (8.5-10.1)
[2024-04-05 03:04] LABS: CREATININE 1.1 mg/dL (0.55-1.3)
[2024-04-05 03:10] LABS: N-TERMINAL BNP 3953.8 pg/ml (5-450)
[2024-04-05] MEDS ORDERED: ONDANSETRON 4 MG/2 ML VIAL IVPUSH PRN (07:51)
[2024-04-05 08:37] LABS: POTASSIUM 4.3 mmol/L (3.5-5.1)
[2024-04-05 08:38] LABS: HEMATOCRIT 33.4 % (32.4-45.2); HEMOGLOBIN 11.2 GM/dL (10.7-15.3); MCHC 33.5 g/dl (32.0-36.0); MEAN CELL VOLUME 89.4 fl (80-96); PLATELET COUNT 237 10^3/uL (134-434); RBC 3.73 M/mm3 (3.60-5.2); RDW 13.2 % (11.6-15.6); WHITE BLOOD COUNT 8.5 K/mm3 (4.0-10.0)
[2024-04-05 08:39] LABS: CALCIUM 8.8 mg/dL (8.5-10.1)
[2024-04-05 08:40] LABS: ALBUMIN 3.1 g/dl (3.4-5.0); BLOOD UREA NITROGEN 27.2 mg/dL (7-18); MAGNESIUM 2.1 mg/dL (1.8-2.4)
[2024-04-05 08:43] LABS: PHOSPHOROUS 3.4 mg/dL (2.5-4.9)
[2024-04-05 08:44] LABS: BILIRUBIN,TOTAL 0.9 mg/dL (0.2-1); TOT PROT 5.9 g/dl (6.4-8.2)
[2024-04-05] MEDS ORDERED: PANTOPRAZOLE 20 MG TABLET PO SCH (10:00)
[2024-04-05] MEDS: ENOXAPARIN NA (PORCINE) 40 MG/0.4 ML DISP.SYRIN SQ SCH (11:10)
[2024-04-05] MEDS: PANTOPRAZOLE 20 MG TABLET PO SCH (11:10)
[2024-04-05] MEDS: ALPRAZolam 0.25 MG TABLET PO PRN (11:11)
[2024-04-05] MEDS: MAG HYDROX/AL HYDROX/SIMETH 30 ML UNIT-DOSE CUP PO SCH (11:21)
[2024-04-05] MEDS ORDERED: ALBUTEROL SO4 2.5/IPRATROPIUM 0.5 INH SOL 3 ML VIAL.NEB. NEB PRN (11:24)
[2024-04-06 07:39] LABS: EOS % 8.6 % (0-4.5); HEMATOCRIT 34.2 % (32.4-45.2); HEMOGLOBIN 11.6 GM/dL (10.7-15.3); LYMPH % 28.2 % (8-40); MCH 30.5 pg (25.7-33.7); MEAN CELL VOLUME 89.8 fl (80-96); MEAN PLT VOLUME 7.7 fl (7.5-11.1); MONO % 12.6 % (3.8-10.2); NEUT % 49.6 % (42.8-82.8); PLATELET COUNT 241 10^3/uL (134-434); RBC 3.81 M/mm3 (3.60-5.2); RDW 13.3 % (11.6-15.6); WHITE BLOOD COUNT 7.7 K/mm3 (4.0-10.0)
[2024-04-06 07:52] LABS: POTASSIUM 3.8 mmol/L (3.5-5.1)
[2024-04-06 08:05] LABS: ALBUMIN 3.7 g/dl (3.4-5.0); CALCIUM 9.3 mg/dL (8.5-10.1)
[2024-04-06 08:06] LABS: BLOOD UREA NITROGEN 31.7 mg/dL (7-18); MAGNESIUM 2.3 mg/dL (1.8-2.4)
[2024-04-06 08:09] LABS: CREATININE 0.9 mg/dL (0.55-1.3); PHOSPHOROUS 3.3 mg/dL (2.5-4.9)
[2024-04-06 08:10] LABS: BILIRUBIN,TOTAL 0.7 mg/dL (0.2-1); TOT PROT 6.8 g/dl (6.4-8.2)
[2024-04-06] MEDS: FUROSEMIDE 40 MG/4 ML INJECTABLE VIAL IVPUSH ONE (13:03)
[2024-04-06] MEDS: ASPIRIN COATED 81 MG TABLET.EC PO SCH (13:04)
[2024-04-06] MEDS: ALPRAZolam 0.25 MG TABLET PO ONE (13:39)
[2024-04-06] MEDS: LEVOTHYROXINE NA 25 MCG TABLET (FP) PO SCH (17:03)
[2024-04-06] MEDS: LOSARTAN POTASSIUM 25 MG TABLET PO SCH (21:02)
[2024-04-07] MEDS: LORazepam 2 MG/ML SDV VIAL IVPUSH ONE (00:30)
[2024-04-07] MEDS: hydrOXYzine PAMOATE 25 MG CAPSULE (FP) PO ONE (02:44)
[2024-04-07] MEDS: MELATONIN 5 MG TABLETS PO ONE (02:44)
[2024-04-07 06:53] VITALS: RESP 16
[2024-04-07 07:16] LABS: EOS % 8.8 % (0-4.5); HEMATOCRIT 31.6 % (32.4-45.2); HEMOGLOBIN 10.4 GM/dL (10.7-15.3); LYMPH % 20.9 % (8-40); MCHC 32.9 g/dl (32.0-36.0); MEAN CELL VOLUME 91.3 fl (80-96); MEAN PLT VOLUME 7.8 fl (7.5-11.1); MONO % 14.1 % (3.8-10.2); NEUT % 55.2 % (42.8-82.8); PLATELET COUNT 227 10^3/uL (134-434); RBC 3.46 M/mm3 (3.60-5.2); RDW 13.4 % (11.6-15.6); WHITE BLOOD COUNT 8.1 K/mm3 (4.0-10.0)
[2024-04-07 07:38] LABS: ALBUMIN 3.3 g/dl (3.4-5.0); BLOOD UREA NITROGEN 32.7 mg/dL (7-18); CALCIUM 8.8 mg/dL (8.5-10.1)
[2024-04-07 07:41] LABS: CREATININE 0.9 mg/dL (0.55-1.3); PHOSPHOROUS 3.7 mg/dL (2.5-4.9)
[2024-04-07 07:44] LABS: BILIRUBIN,TOTAL 0.6 mg/dL (0.2-1); TOT PROT 6.3 g/dl (6.4-8.2)
[2024-04-07 10:33] VITALS: BP 115/58; PULSE 77; TEMP 97.7
== END 2024-04-07 11:16 | disposition home or self-care (01) | DRG 291 ==
LOC: JER 07:50 → JERBED 09:27 → J4S 14:29 → OBSVTOIN 04-05 16:13
PROVIDERS: ADMIT Internal Medicine; ATTEND Internal Medicine
DX: I11.0 Hypertensive heart disease with heart failure (principal); I50.33 Acute on chronic diastolic (congestive) heart failure; I24.89 Other forms of acute ischemic heart disease; E87.1 Hypo-osmolality and hyponatremia; E46 Unspecified protein-calorie malnutrition; Z68.1 Body mass index [BMI] 19.9 or less, adult; J44.1 Chronic obstructive pulmonary disease with (acute) exacerbation; K21.9 Gastro-esophageal reflux disease without esophagitis; E78.5 Hyperlipidemia, unspecified; F41.9 Anxiety disorder, unspecified; E11.9 Type 2 diabetes mellitus without complications; E03.9 Hypothyroidism, unspecified; K59.00 Constipation, unspecified; R10.13 Epigastric pain; F03.90 Unspecified dementia, unspecified severity, without behavioral disturbance, psychotic disturbance, mood disturbance, and anxiety; R00.0 Tachycardia, unspecified
CPT/HCPCS: 0241U-QW; 36415; 71045-TC-FY; 80048; 80053; 81003; 82533; 83735; 83880; 84100; 84300; 84443; 84484; 85025; 85027; 87086; 93005; 93010; 93306-TC; 97116-GP; 97161-GP; 99285-25; G0378; J0131

== ENCOUNTER 2024-08-24 11:51 | Observation (INO) | payer OTHER ==
[2024-08-24 12:50] LABS: VENOUS BASE EXCESS 1.3 mmol/L (-2-2); VENOUS O2 SATURATION 91.5 % (70-80); VENOUS PCO2 23.6 mmHg (38-52); VENOUS PH 7.583 (7.310-7.410)
[2024-08-24 12:54] LABS: HEMATOCRIT 32.8 % (34.1-44.9); HEMOGLOBIN 11.1 g/dL (11.2-15.7); MCHC 33.8 g/dl (32.2-35.5); MEAN CELL VOLUME 86.1 fl (79.4-94.8); MEAN PLT VOLUME 9.1 fl (9.4-12.3); PLATELET COUNT 369 x10^3/uL (182-369); RDW 11.9 % (12.5-17.0)
[2024-08-24 13:02] LABS: INR 1.06 (0.83-1.09); PROTHROMBIN TIME (PATIENT) 11.6 SEC (9.7-13.0)
[2024-08-24 13:05] LABS: ACTIVATED PTT 30.9 SECONDS (25.2-36.5)
[2024-08-24 13:12] LABS: POTASSIUM 3.8 mmol/L (3.5-5.1)
[2024-08-24 13:14] LABS: CALCIUM 9.2 mg/dL (8.5-10.1)
[2024-08-24 13:15] LABS: ALBUMIN 3.3 g/dl (3.4-5.0); BLOOD UREA NITROGEN 14.5 mg/dL (7-18)
[2024-08-24 13:18] LABS: CREATININE 0.7 mg/dL (0.55-1.3)
[2024-08-24 13:19] LABS: BILIRUBIN,TOTAL 0.6 mg/dL (0.2-1); TOT PROT 6.3 g/dl (6.4-8.2)
[2024-08-24] MEDS ORDERED: ALPRAZolam 0.25 MG TABLET ONE (13:40)
[2024-08-24] MEDS: ALPRAZolam 1 MG TABLET PO PRN (13:47)
[2024-08-24] MEDS: LACTATED RINGERS SOLUTION 1,000 ML/1,000 ML INFUS.BAG IV SCH (15:23)
[2024-08-24] MEDS: LOSARTAN POTASSIUM 50 MG TABLET PO SCH (15:23)
[2024-08-24] MEDS ORDERED: predniSONE 20 MG TABLET (UD) ONE (15:34)
[2024-08-24] MEDS: predniSONE 20 MG TABLET (UD) PO SCH (15:37)
[2024-08-24] MEDS: ALBUTEROL SO4 2.5/IPRATROPIUM 0.5 INH SOL 3 ML VIAL.NEB. NEB SCH (16:22)
[2024-08-24] MEDS: ALPRAZolam 0.25 MG TABLET PO PRN (19:53)
[2024-08-24] MEDS: HEPARIN NA (PORCINE) 5,000 UNITS/ML 1ML VIAL SQ SCH (21:09)
[2024-08-24] MEDS: BUDESONIDE/FORMETEROL FUMARATE 160/4.5 mcg INHALER IH SCH (21:30)
[2024-08-25 01:57] VITALS: RESP 18
[2024-08-25 09:09] LABS: ABSOLUTE IMMATURE GRANULOCYTES 0.03 x10^3/uL (0.0-0.031); BASOPHILS # 0.02 x10^3/uL (0.01-0.08); EOSINOPHILS # 0.07 x10^3/uL (0.04-0.36); HEMATOCRIT 29.7 % (34.1-44.9); HEMOGLOBIN 9.7 g/dL (11.2-15.7); MCHC 32.7 g/dl (32.2-35.5); MEAN CELL VOLUME 89.2 fl (79.4-94.8); MEAN PLT VOLUME 9.1 fl (9.4-12.3); MONOCYTE # 0.59 x10^3/uL (0.24-0.86); MONOCYTE % 8.4 % (4.7-12.5); PLATELET COUNT 288 x10^3/uL (182-369); RDW 12.2 % (12.5-17.0)
[2024-08-25 09:21] LABS: POTASSIUM 4.5 mmol/L (3.5-5.1)
[2024-08-25] MEDS: MONTELUKAST NA 10 MG TABLET PO SCH ×2 (09:41→21:22)
[2024-08-25] MEDS: ASPIRIN COATED 81 MG TABLET.EC PO SCH (09:41)
[2024-08-25] MEDS: PANTOPRAZOLE 20 MG TABLET PO SCH (09:41)
[2024-08-25 09:54] LABS: BLOOD UREA NITROGEN 21.1 mg/dL (7-18)
[2024-08-25 09:57] LABS: CALCIUM 9.2 mg/dL (8.5-10.1)
[2024-08-25 10:04] LABS: CREATININE 0.7 mg/dL (0.55-1.3)
[2024-08-25 14:19] VITALS: BMI 16.2
[2024-08-26 08:56] VITALS: BP 124/69; PULSE 77; TEMP 97.7
== END 2024-08-26 10:45 | disposition home or self-care (01) ==
LOC: JER 11:51 → JERBED 14:11 → J7W 16:07
PROVIDERS: ADMIT Internal Medicine
PROC: 3E023GC Introduction of Other Therapeutic Substance into Muscle, Percutaneous Approach (ICD-10-PCS; principal; 2024-08-24)
PROC: 3E0337Z Introduction of Electrolytic and Water Balance Substance into Peripheral Vein, Percutaneous Approach (ICD-10-PCS; 2024-08-24)
DX: R06.02 Shortness of breath (principal); F41.9 Anxiety disorder, unspecified; E87.1 Hypo-osmolality and hyponatremia; R91.1 Solitary pulmonary nodule; E03.9 Hypothyroidism, unspecified; J44.9 Chronic obstructive pulmonary disease, unspecified; Z86.79 Personal history of other diseases of the circulatory system; Z86.39 Personal history of other endocrine, nutritional and metabolic disease; I10 Essential (primary) hypertension
CPT/HCPCS: 36415; 71045-TC-FY; 80048; 80053; 82803; 84484; 85025; 85027; 85610; 85730; 86850; 86900; 86901; 93005; 93010; 94640; 96360; 96372; 99285-25; G0378; J1644

== ENCOUNTER 2024-09-04 05:01 | Inpatient (IN) | payer OTHER ==
[2024-09-04] MEDS ORDERED: methylPREDNISolone NA SUCC 125 MG/2 ML VIAL ONE (05:36)
[2024-09-04] MEDS ORDERED: LEVALBUTEROL HCL 0.63 MG/3 ML VIAL.NEB. IH ONE ×2 (05:36→06:52)
[2024-09-04] MEDS: methylPREDNISolone NA SUCC 125 MG/2 ML VIAL IVPUSH ONE (05:39)
[2024-09-04] MEDS: ALBUTEROL SO4 2.5/IPRATROPIUM 0.5 INH SOL 3 ML VIAL.NEB. NEB SCH (05:41)
[2024-09-04] MEDS: LEVALBUTEROL HCL 0.63 MG/3 ML VIAL.NEB. IH ONE ×2 (05:45→07:00)
[2024-09-04] MEDS ORDERED: LORazepam 2 MG/ML SDV VIAL ONE (05:48)
[2024-09-04 06:26] LABS: VENOUS BASE EXCESS -3.9 mmol/L (-2-2); VENOUS O2 SATURATION 68.3 % (70-80); VENOUS PCO2 41.2 mmHg (38-52); VENOUS PH 7.339 (7.310-7.410)
[2024-09-04 06:37] LABS: ABSOLUTE IMMATURE GRANULOCYTES 0.08 x10^3/uL (0.0-0.031); BASOPHILS # 0.08 x10^3/uL (0.01-0.08); EOSINOPHIL % 1.7 % (0.7-5.8); HEMATOCRIT 33.3 % (34.1-44.9); HEMOGLOBIN 11.1 g/dL (11.2-15.7); MCHC 33.3 g/dl (32.2-35.5); MEAN CELL VOLUME 88.1 fl (79.4-94.8); MEAN PLT VOLUME 10.2 fl (9.4-12.3); MONOCYTE # 0.73 x10^3/uL (0.24-0.86); MONOCYTE % 6.3 % (4.7-12.5); PLATELET COUNT 291 x10^3/uL (182-369); RDW 12.2 % (12.5-17.0)
[2024-09-04 06:43] LABS: INR 0.99 (0.83-1.09); PROTHROMBIN TIME (PATIENT) 10.8 SEC (9.7-13.0)
[2024-09-04 06:46] LABS: ACTIVATED PTT 27.5 SECONDS (25.2-36.5)
[2024-09-04] MEDS ORDERED: AZITHROMYCIN IVPB 500 MG/250 ML BAG IVPB ONE (06:52)
[2024-09-04 06:53] LABS: BLOOD UREA NITROGEN 17.1 mg/dL (7-18); MAGNESIUM 1.3 mg/dL (1.8-2.4)
[2024-09-04 06:56] LABS: CREATININE 0.8 mg/dL (0.55-1.3)
[2024-09-04 06:58] LABS: BILIRUBIN,TOTAL 0.5 mg/dL (0.2-1); TOT PROT 6.8 g/dl (6.4-8.2)
[2024-09-04] MEDS: AZITHROMYCIN IVPB 500 MG in DEXTROSE 5%-WATER - 250 ML IVPB ONE (07:00)
[2024-09-04 07:01] LABS: N-TERMINAL BNP 1058.4 pg/ml (5-450)
[2024-09-04 07:39] LABS: LACTIC ACID 4.4 mmol/L (0.4-2.0)
[2024-09-04 08:09] LABS: EPI CELLS 5 /uL (0-25.1); HYALINE CASTS 0 /uL (0-3.1); PH,URINE 6.5 (5.0-8.0); URINE APPEARANCE CLEAR; URINE BACTERIA 106 /uL (0-1359); URINE BILIRUBIN NEGATIVE (NEGATIVE); URINE COLOR YELLOW; URINE GLUCOSE (UA) NEGATIVE (NEGATIVE); URINE KETONE TRACE (NEGATIVE); URINE LEUK ESTERASE TRACE (NEGATIVE); URINE NITRITE NEGATIVE (NEGATIVE); URINE PROTEIN TRACE (NEGATIVE); URINE RBC 8 /uL (0-23.9); URINE UROBILINOGEN 0.2 mg/dL (0.2-1.0); URINE WBC 3 /uL (0-25.8)
[2024-09-04 08:17] LABS: ALBUMIN 3.8 g/dl (3.4-5.0); CALCIUM 10.2 mg/dL (8.5-10.1); POTASSIUM 3.8 mmol/L (3.5-5.1)
[2024-09-04] MEDS ORDERED: MAGNESIUM SULFATE IN WATER 2 GM/50 ML IVPB IVPB ONE (08:26)
[2024-09-04] MEDS: MAGNESIUM SULF 50% (8.12 MEQ/2 ML-1 GM VIAL) IVPB ONE (08:33)
[2024-09-04] MEDS ORDERED: TRIMETHOBENZAMIDE HCL 200MG/2ML INJ IM ONE (09:47)
[2024-09-04] MEDS: TRIMETHOBENZAMIDE HCL 200MG/2ML INJ IM ONE (09:57)
[2024-09-04] MEDS ORDERED: LOSARTAN POTASSIUM 50 MG TABLET ONE (10:18)
[2024-09-04] MEDS ORDERED: ASPIRIN COATED 81 MG TABLET.EC ONE (10:18)
[2024-09-04] MEDS ORDERED: ENOXAPARIN NA (PORCINE) 40 MG/0.4 ML DISP.SYRIN SQ ONE (10:19)
[2024-09-04] MEDS ORDERED: MONTELUKAST NA 10 MG TABLET ONE (10:19)
[2024-09-04] MEDS: ENOXAPARIN NA (PORCINE) 40 MG/0.4 ML DISP.SYRIN SQ SCH ×2 (10:33→21:16)
[2024-09-04] MEDS: LOSARTAN POTASSIUM 50 MG TABLET PO SCH (10:33)
[2024-09-04] MEDS: MONTELUKAST NA 10 MG TABLET PO SCH (10:33)
[2024-09-04] MEDS: ASPIRIN COATED 81 MG TABLET.EC PO SCH (10:33)
[2024-09-04] MEDS: SODIUM CHLORIDE 1,000 ML IV SCH (10:33)
[2024-09-04 10:47] LABS: ARTERIAL BLD GAS O2 SATURATION 97.5 % (95-98); ARTERIAL BLOOD GAS BASE EXCESS 0.2 mmol/L (-2-2); ARTERIAL BLOOD GAS PO2 87.9 mmHg (80-100); ARTERIAL BLOOD GAS pH 7.504 (7.350-7.450)
[2024-09-04 10:53] LABS: ALLENS TEST POSITIVE
[2024-09-04] MEDS ORDERED: NITROGLYCERIN SUBLINGUAL 1/150 0.4 MG TAB SL PRN (11:47)
[2024-09-04] MEDS ORDERED: LEVALBUTEROL HCL 0.31 MG/3 ML VIAL.NEB IH PRN (12:27)
[2024-09-04] MEDS: BUDESONIDE/FORMETEROL FUMARATE 160/4.5 mcg INHALER IH SCH (12:30)
[2024-09-04] MEDS: predniSONE 20 MG TABLET (UD) PO SCH (13:19)
[2024-09-04] MEDS: ISOSORBIDE MONONITRATE 30 MG TAB.SR.24H (FP) PO SCH (13:19)
[2024-09-04] MEDS: ALPRAZolam 0.25 MG TABLET PO PRN (13:19)
[2024-09-04] MEDS: LEVALBUTEROL HCL 0.63 MG/3 ML VIAL.NEB. IH SCH (13:19)
[2024-09-04] MEDS: MAGNESIUM 1GM/D5W 100ML - 100 ML IVPB IVPB ONE (15:53)
[2024-09-04 16:14] LABS: CHLORIDE 82 mmol/L (98-107)
[2024-09-04 16:15] LABS: BLOOD UREA NITROGEN 13.6 mg/dL (7-18); CO2 23 mmol/L (21-32)
[2024-09-04 16:16] LABS: GLUCOSE,RANDOM 150 mg/dL (74-106)
[2024-09-04 16:17] LABS: ANION GAP 14 mmol/L (4-13); POTASSIUM 3.5 mmol/L (3.5-5.1); SODIUM 119 mmol/L (136-145)
[2024-09-04 16:19] LABS: CREATININE 0.5 mg/dL (0.55-1.3)
[2024-09-04] MEDS: POTASSIUM CHLORIDE ORAL LIQUID 20 MEQ/15 ML PO ONE (19:09)
[2024-09-04] MEDS: FLUTICASONE PROP 0.05% 16 GM NASAL SPRAY NS SCH (21:15)
[2024-09-04] MEDS: ATORVASTATIN CA 40 MG TABLET (FP) PO SCH (21:16)
[2024-09-05 06:46] LABS: ABSOLUTE IMMATURE GRANULOCYTES 0.05 x10^3/uL (0.0-0.031); EOSINOPHIL % 0.1 % (0.7-5.8); EOSINOPHILS # 0.01 x10^3/uL (0.04-0.36); HEMATOCRIT 27.6 % (34.1-44.9); HEMOGLOBIN 9.3 g/dL (11.2-15.7); MCHC 33.7 g/dl (32.2-35.5); MEAN PLT VOLUME 10.6 fl (9.4-12.3); MONOCYTE # 1.22 x10^3/uL (0.24-0.86); MONOCYTE % 12.4 % (4.7-12.5); PLATELET COUNT 182 x10^3/uL (182-369); RDW 12.4 % (12.5-17.0)
[2024-09-05] MEDS ORDERED: SODIUM CHLORIDE 3% 500 ML/500 ML INFUS.BAG IV SCH ×2 (08:15→10:00)
[2024-09-05 09:04] LABS: POTASSIUM 4.7 mmol/L (3.5-5.1)
[2024-09-05 09:14] LABS: CALCIUM 8.7 mg/dL (8.5-10.1)
[2024-09-05 09:15] LABS: BLOOD UREA NITROGEN 19.9 mg/dL (7-18); MAGNESIUM 2.4 mg/dL (1.8-2.4)
[2024-09-05 09:16] LABS: BILIRUBIN,TOTAL 0.4 mg/dL (0.2-1)
[2024-09-05 09:17] LABS: TOT PROT 5.6 g/dl (6.4-8.2)
[2024-09-05 09:18] LABS: CREATININE 0.8 mg/dL (0.55-1.3); PHOSPHOROUS 3.1 mg/dL (2.5-4.9)
[2024-09-05] MEDS: ENOXAPARIN NA (PORCINE) 40 MG/0.4 ML DISP.SYRIN SQ SCH (09:40)
[2024-09-05] MEDS ORDERED: methylPREDNISolone NA SUCC 40 MG/1 ML VIAL IVPUSH SCH (10:00)
[2024-09-05] MEDS: SODIUM CHLORIDE 1,000 ML IV SCH (13:11)
[2024-09-05] MEDS ORDERED: ENOXAPARIN NA (PORCINE) 40 MG/0.4 ML DISP.SYRIN SQ SCH (22:00)
[2024-09-06 08:20] LABS: HEMATOCRIT 29.8 % (34.1-44.9); HEMOGLOBIN 9.7 g/dL (11.2-15.7); MCHC 32.6 g/dl (32.2-35.5); MEAN CELL VOLUME 89.8 fl (79.4-94.8); PLATELET COUNT 224 x10^3/uL (182-369); RDW 12.9 % (12.5-17.0)
[2024-09-06 08:44] LABS: ALBUMIN 2.9 g/dl (3.4-5.0); BLOOD UREA NITROGEN 18.8 mg/dL (7-18); CALCIUM 8.8 mg/dL (8.5-10.1)
[2024-09-06 08:48] LABS: CREATININE 0.6 mg/dL (0.55-1.3)
[2024-09-06 08:49] LABS: BILIRUBIN,TOTAL 0.6 mg/dL (0.2-1); TOT PROT 5.5 g/dl (6.4-8.2)
[2024-09-06] MEDS: DEXTROSE 5%-WATER - 1,000 ML IV SCH (11:03)
[2024-09-06 16:48] LABS: POTASSIUM 4.7 mmol/L (3.5-5.1)
[2024-09-06] MEDS: MONTELUKAST NA 10 MG TABLET PO SCH (21:42)
[2024-09-06] MEDS: ACETAMINOPHEN 325 MG TABLET (FP) PO PRN (21:45)
[2024-09-07 07:15] LABS: HEMATOCRIT 29.6 % (34.1-44.9); HEMOGLOBIN 9.4 g/dL (11.2-15.7); MCHC 31.8 g/dl (32.2-35.5); MEAN CELL VOLUME 91.9 fl (79.4-94.8); MEAN PLT VOLUME 10.1 fl (9.4-12.3); PLATELET COUNT 203 x10^3/uL (182-369); RDW 13.1 % (12.5-17.0)
[2024-09-07 07:32] LABS: POTASSIUM 3.9 mmol/L (3.5-5.1)
[2024-09-07 07:34] LABS: CALCIUM 8.5 mg/dL (8.5-10.1)
[2024-09-07 07:35] LABS: BLOOD UREA NITROGEN 26.2 mg/dL (7-18)
[2024-09-07 07:38] LABS: CREATININE 0.7 mg/dL (0.55-1.3)
[2024-09-07 12:37] VITALS: BMI 17.6
[2024-09-07 13:00] VITALS: BP 135/70; PULSE 78; RESP 16; TEMP 97.5
== END 2024-09-07 13:35 | disposition home health service (06) | DRG 190 ==
LOC: JER 05:01 → JERBED 07:56 → J4W 11:41
PROVIDERS: ADMIT Internal Medicine; ATTEND Internal Medicine
DX: J44.1 Chronic obstructive pulmonary disease with (acute) exacerbation (principal); E43 Unspecified severe protein-calorie malnutrition; I21.4 Non-ST elevation (NSTEMI) myocardial infarction; E87.1 Hypo-osmolality and hyponatremia; E87.20 Acidosis, unspecified; Z68.1 Body mass index [BMI] 19.9 or less, adult; R64 Cachexia; I10 Essential (primary) hypertension; M06.9 Rheumatoid arthritis, unspecified; E03.9 Hypothyroidism, unspecified; F41.9 Anxiety disorder, unspecified; K21.9 Gastro-esophageal reflux disease without esophagitis; F41.0 Panic disorder [episodic paroxysmal anxiety]; H91.93 Unspecified hearing loss, bilateral; K59.00 Constipation, unspecified; L89.151 Pressure ulcer of sacral region, stage 1; E86.0 Dehydration; E83.42 Hypomagnesemia; I44.4 Left anterior fascicular block; I34.0 Nonrheumatic mitral (valve) insufficiency
CPT/HCPCS: 0241U-QW; 36415; 36600; 71045-TC-FY; 71275-TC; 80048; 80053; 81003; 82570; 82803; 82962; 83605; 83735; 83880; 83930; 83935; 84100; 84300; 84439; 84443; 84484; 85025; 85027; 85610; 85730; 86850; 86900; 86901; 87040; 87086; 93005; 93010; 93306-TC; 94761; 97116-GP; 97162-GP; 99285-25; Q9967

== ENCOUNTER 2025-01-22 22:08 | Observation (INO) | payer OTHER ==
[2025-01-22 22:54] LABS: ABSOLUTE IMMATURE GRANULOCYTES 0.04 x10^3/uL (0.0-0.031); BASOPHILS # 0.08 x10^3/uL (0.01-0.08); BG HCT 35.0 % (32.4-45.2); EOSINOPHIL % 2.3 % (0.7-5.8); EOSINOPHILS # 0.19 x10^3/uL (0.04-0.36); MCHC 32.4 g/dl (32.2-35.5); MEAN CELL VOLUME 89.1 fl (79.4-94.8); MEAN PLT VOLUME 10.1 fl (9.4-12.3); MONOCYTE # 0.83 x10^3/uL (0.24-0.86); MONOCYTE % 10.1 % (4.7-12.5); RDW 14.6 % (12.5-17.0); VENOUS BASE EXCESS 1.3 mmol/L (-2-2); VENOUS O2 SATURATION 38.3 % (70-80); VENOUS PCO2 34.1 mmHg (38-52); VENOUS PH 7.475 (7.310-7.410)
[2025-01-22 23:10] LABS: GLUCOSE,RANDOM 106.0 mg/dL (74-106); TOT PROT 6.6 g/dl (6.4-8.2)
[2025-01-22 23:12] LABS: CO2 22.0 mmol/L (21-32)
[2025-01-22 23:13] LABS: ALK PHOS 63.0 U/L (40-150)
[2025-01-22 23:16] LABS: CREATININE 0.67 mg/dL (0.55-1.3); SGOT/AST 23.0 U/L (5-34); SGPT/ALT 16.0 U/L (0-55)
[2025-01-23 00:39] LABS: URINE APPEARANCE CLOUDY; URINE BILIRUBIN NEGATIVE (NEGATIVE); URINE COLOR YELLOW; URINE GLUCOSE (UA) NEGATIVE (NEGATIVE); URINE KETONE NEGATIVE (NEGATIVE)
[2025-01-23 00:40] LABS: URINE LEUK ESTERASE 3+ (NEGATIVE); URINE NITRITE NEGATIVE (NEGATIVE); URINE PROTEIN NEGATIVE (NEGATIVE); URINE UROBILINOGEN 0.2 mg/dL (0.2-1.0)
[2025-01-23] MEDS ORDERED: ERTAPENEM SODIUM 1 GM VIAL ONE (00:52)
[2025-01-23] MEDS: ERTAPENEM SODIUM 1 GM in SODIUM CHLORIDE 50 ML IVPB ONE (01:05)
[2025-01-23] MEDS ORDERED: ALBUTEROL SO4 HFA INHALER IH PRN (03:00)
[2025-01-23] MEDS ORDERED: PATIENT'S OWN MEDICATION (NON-FORMULARY) (Alprazolam [Alprazolam Xr] 0.5 MG Tab.Er.24h) PO PRN (03:00)
[2025-01-23 04:53] VITALS: BMI 16.3
[2025-01-23] MEDS: TAMSULOSIN HCL 0.4 MG CAP PO SCH (08:25)
[2025-01-23] MEDS: ENOXAPARIN NA (PORCINE) 40 MG/0.4 ML DISP.SYRIN SQ SCH (09:27)
[2025-01-23] MEDS: CALCIUM (OYSTER SHELL) 500 MG TABLET (FP) PO SCH (09:27)
[2025-01-23] MEDS: LOSARTAN POTASSIUM 50 MG TABLET PO SCH (09:28)
[2025-01-23] MEDS: ASPIRIN COATED 81 MG TABLET.EC PO SCH (09:28)
[2025-01-23 09:50] LABS: ABSOLUTE IMMATURE GRANULOCYTES 0.02 x10^3/uL (0.0-0.031); BASOPHILS # 0.07 x10^3/uL (0.01-0.08); EOSINOPHIL % 10.6 % (0.7-5.8); EOSINOPHILS # 0.64 x10^3/uL (0.04-0.36); MCHC 32.3 g/dl (32.2-35.5); MEAN CELL VOLUME 90.1 fl (79.4-94.8); MEAN PLT VOLUME 10.3 fl (9.4-12.3); MONOCYTE # 0.79 x10^3/uL (0.24-0.86); MONOCYTE % 13.1 % (4.7-12.5); RDW 14.6 % (12.5-17.0)
[2025-01-23] MEDS ORDERED: ERTAPENEM SODIUM 1 GM in SODIUM CHLORIDE 50 ML IVPB SCH (10:00)
[2025-01-23 10:08] LABS: GLUCOSE,RANDOM 106.0 mg/dL (74-106); TOT PROT 5.7 g/dl (6.4-8.2)
[2025-01-23 10:09] LABS: CO2 23.0 mmol/L (21-32)
[2025-01-23 10:11] LABS: ALK PHOS 58.0 U/L (40-150)
[2025-01-23 10:14] LABS: CREATININE 0.69 mg/dL (0.55-1.3); SGOT/AST 19.0 U/L (5-34); SGPT/ALT 15.0 U/L (0-55)
[2025-01-23] MEDS: BUDESONIDE/FORMETEROL FUMARATE 160/4.5 mcg INHALER IH SCH (10:59)
[2025-01-23 20:31] VITALS: RESP 18
[2025-01-23] MEDS: ATORVASTATIN CA 40 MG TABLET (FP) PO SCH (21:23)
[2025-01-23] MEDS: MONTELUKAST NA 10 MG TABLET PO SCH (21:23)
[2025-01-24] MEDS: ERTAPENEM SODIUM 1 GM in SODIUM CHLORIDE 50 ML IVPB SCH (01:18)
[2025-01-24 08:48] VITALS: BP 117/61; PULSE 73; TEMP 98.1
[2025-01-24] MEDS: FAMOTIDINE 20 MG TABLET PO PRN (09:13)
== END 2025-01-24 12:25 | disposition home or self-care (01) ==
LOC: JER 22:08 → JERBED 01-23 00:43 → INTOOBSV 01-23 00:43 → J5S 01-23 03:31
PROVIDERS: ADMIT Internal Medicine
PROC: 3E03329 Introduction of Other Anti-infective into Peripheral Vein, Percutaneous Approach (ICD-10-PCS; principal; 2025-01-23)
PROC: 3E023GC Introduction of Other Therapeutic Substance into Muscle, Percutaneous Approach (ICD-10-PCS; 2025-01-23)
DX: R06.00 Dyspnea, unspecified (principal); F41.9 Anxiety disorder, unspecified; J44.9 Chronic obstructive pulmonary disease, unspecified; I10 Essential (primary) hypertension; Z87.440 Personal history of urinary (tract) infections; I25.10 Atherosclerotic heart disease of native coronary artery without angina pectoris; N81.10 Cystocele, unspecified; E03.9 Hypothyroidism, unspecified; E78.5 Hyperlipidemia, unspecified
CPT/HCPCS: 36415; 71045-TC-FY; 80053; 81003; 82803; 83735; 84100; 84484; 85025; 87086; 87637-QW; 93005; 93010; 96365; 96366; 96372; 99285-25; G0378